=== PATIENT | male | born 1990 | race Caucasian/White ===

== ENCOUNTER 2017-01-24 21:34 | Emergency (ER) | payer OTHER ==
[2017-01-24 21:42] VITALS: TEMP 97.7
[2017-01-24] MEDS ORDERED: OXYCODONE/APAP 5/325 TAB ONE (21:45)
[2017-01-24] MEDS ORDERED: ONDANSETRON DISINTEGRATING 4 MG TAB ONE (21:45)
--- NOTE | 2017-01-24 21:49 | EDPHY ---
H & P Time Seen by Provider: 01/24/17 21:46 HPI/ROS: CHIEF COMPLAINT: Right shoulder injury HISTORY OF PRESENT ILLNESS: 26-year-old male arrives via private vehicle complaining of acute right shoulder pain after he is playing soccer, landed on his right shoulder, noted a deformity. Unable to move secondary to pain. No head injury. No paresthesia distally. Intact skin. PHYSICAL EXAM (Prior to examination, patient consented to physical exam, hands were washed and my usual and customary physical exam procedures followed) 1) GENERAL: Well-developed, well-nourished, alert and oriented. Appears uncomfortable. 2) HEAD: Normocephalic 3) HEENT: Pupils equal, round, reactive to light bilaterally. 4) LUNGS: Breathing comfortably. 5) MUSCULOSKELETAL: Visible step-off at the acromioclavicular joint. No humeral head step-off or deformity. Soft compartments. Normal coloration. 6) SKIN: intact 7) VASCULAR: pulses and cap refill present are brisk 8) NEUROLOGIC: Radial, ulnar, median nerve function intact with no deficits appreciated on exam DIFFERENTIAL DIAGNOSIS: in no particular order including but not limited to fracture, sprain, compartment syndrome Xray of the right shoulder interpreted by myself: AC separation otherwise no fracture or evidence of dislocation Procedure: Splint An upper extremity sling splint was applied by ER auto technician. After application of the splint I returned and re-examined the patient. The splint was adequately immobilizing the joint and distal to the splint the patient's circulation and sensation were intact. Patient shows no signs of compartment syndrome. Was given orthopedic precautions. Smoking Status: Never smoked Constitutional: Initial Vital Signs Temperature (C) 36.5 C 01/24/17 21:37 Heart Rate 73 01/24/17 21:37 Respiratory Rate 18 01/24/17 21:37 Blood Pressure 140/100 H 01/24/17 21:37 O2 Sat (%) 89 L 01/24/17 21:37 O2 Delivery Mode Room Air Allergies/Adverse Reactions: No Known Allergies Allergy (Unverified 01/24/17 21:42) Home Medications: Medication Instructions Recorded Sertraline HCl 01/24/17 MDM/Departure - MDM Imaging Results: Imaging Impressions Shoulder X-Ray 01/24/17 21:45 Impression: Grade II-III right acromioclavicular separation sprain injury. Images reviewed by myself Medications Given: Discontinued Medications Hydrocodone Bitart/Acetaminophen ([place] 5/325mg Prepack#6) 1 btl TAKEHOME EDNOW ONE Stop: 01/24/17 21:51 Last Admin: 01/24/17 21:59 Dose: 1 btl Ondansetron HCl (Zofran Odt) 4 mg PO EDNOW ONE Stop: 01/24/17 21:52 Last Admin: 01/24/17 21:40 Dose: 4 mg Oxycodone/Acetaminophen (Percocet 5/325) 2 tab PO EDNOW ONE Stop: 01/24/17 21:52 Last Admin: 01/24/17 21:45 Dose: 2 tab - Depart Disposition: Home, Routine, Self-Care Clinical Impression: Separation of right acromioclavicular joint Qualifiers: Encounter type: initial encounter Qualified Code(s): S43.101A - Unspecified dislocation of right acromioclavicular joint, initial encounter Condition: Good Instructions: Acromioclavicular Separation (ED) Referrals: Mukul Farrell MD [Medical Doctor] - 2-3 days, call for appt. (Dr. Tovar is an orthopedic surgeon)
[2017-01-24] MEDS ORDERED: HYDROCOD/APAP 5/325 PREPACK#6 BTL TAKEHOME ONE (21:50)
[2017-01-24] MEDS ORDERED: ONDANSETRON DISINTEGRATING 4 MG TAB PO ONE (21:51)
[2017-01-24] MEDS ORDERED: OXYCODONE/APAP 5/325 TAB PO ONE (21:51)
[2017-01-24 22:03] VITALS: BP 121/82; PULSE 59; RESP 16; O2SAT 95
== END 2017-01-24 22:30 | disposition home or self-care (01) ==
DX: S43.101A Unspecified dislocation of right acromioclavicular joint, initial encounter (principal); W18.39XA Other fall on same level, initial encounter; Y93.66 Activity, soccer
CPT/HCPCS: A4565